=== PATIENT | female | born 1940 | race Caucasian/White ===

== ENCOUNTER → 2017-09-25 | Outpatient (CLI) | payer MEDICARE ==
--- NOTE | 2017-09-26 08:31 | ECHOF ---
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 This was a technically adequate study. The left ventricular size is normal. There is mild concentric left ventricular hypertrophy. Overa ll left ventricular systolic function is normal with, an EF between 55 - 60 %. The right ventricle is normal in size. The left atrium is mildly dilated. LA is midly dilated 29-33ml/m2. The right atrial size is normal. There is mild aortic valve sclerosis. There is mild aortic regurgitation. Mild mitral annular calcification present. Mild mitral regurgitation is present. Mild tricuspid regurgitation present. There is mild pulmonary hypertension. The right ventricular systolic pressure, as measured by Doppler, is 42.74mmHg. Trace/mild (physiologic) pulmonic regurgitation. The aortic root size is normal. There is no pericardial effusion. CONCLUSIONS -------- 1. The left ventricular size is normal. 2. There is mild concentric left ventricular hypertrophy. 3. Overall left ventricular systolic function is normal with, an EF between 55 - 60 %. 4. The left atrium is mildly dilated. 5. LA is midly dilated 29-33ml/m2. 6. There is mild aortic valve sclerosis. 7. There is mild aortic regurgitation. 8. Mild mitral annular calcification present. 9. Mild mitral regurgitation is present. 10. Mild tricuspid regurgitation present. 11. There is mild pulmonary hypertension. 12. The right ventricular systolic pressure, as measured by Doppler, is 42.74mmHg. 13. Trace/mild (physiologic) pulmonic regurgitation. 14. The aortic root size is normal. 15. There is no pericardial effusion. MARKETING DATABASE COORDINATOR: Beatriz Sifuentes RDCS
== END ==
LOC: RADECHMAIN 14:37
PROVIDERS: ATTEND Family Medicine
DX: I08.3 Combined rheumatic disorders of mitral, aortic and tricuspid valves (principal); I27.20 Pulmonary hypertension, unspecified
CPT/HCPCS: 93306

== ENCOUNTER → 2018-05-26 | Outpatient (CLI) | payer MEDICARE ==
--- NOTE | 2018-05-27 12:48 | ECHOF ---
Referral Reason:I48.0 Paroxysmal atrial fibrillation MEASUREMENTS -------- HEIGHT: 162.6 cm WEIGHT: 54.4 kg BP: 118/60 RVIDd: 3.5 cm (< 3.3) IVSd: 1.0 cm (0.6 - 1.1) LVIDd: 3.8 cm (3.9 - 5.3) LVPWd: 0.9 cm (0.6 - 1.1) IVSs: 1.4 cm LVIDs: 2.5 cm LVPWs: 1.5 cm LA Diam: 3.7 cm (2.7 - 3.8) LAESV Index (A-L): 29.70 ml/m Ao Diam: 2.9 cm (2.0 - 3.7) AV Cusp: 1.9 cm (1.5 - 2.6) MV EXCURSION: 15.618 mm (> 18.000) MV EF SLOPE: 53 mm/s (70 - 150) EPSS: 0.5 cm RAP: 5.00 mmHg RVSP: 29.01 mmHg FINDINGS -------- Atrial fibrillation. This was a technically good study. The left ventricular size is normal. Left ventricular wall thickness is normal. Overall left vent ricular systolic function is normal with, an EF between 55 - 60 %. The right ventricle is mildly enlarged. LA is midly dilated 29-33ml/m2. The right atrium is normal in size. There is mild aortic valve sclerosis. Mild mitral annular calcification present. Mild mitral regurgitation is present. Mild tricuspid regurgitation present. Right ventricular systolic pressure is normal at < 35 mmHg. Trace/mild (physiologic) pulmonic regurgitation. The aortic root size is normal. Normal inferior vena cava with normal inspiratory collapse consistent with estimated right atrial pre ssure of 5 mmHg. The inferior vena cava is mildly dilated. There is no pericardial effusion. CONCLUSIONS -------- 1. Atrial fibrillation. 2. This was a technically good study. 3. The left ventricular size is normal. 4. Left ventricular wall thickness is normal. 5. Overall left ventricular systolic function is normal with, an EF between 55 - 60 %. 6. The right ventricle is mildly enlarged. 7. LA is midly dilated 29-33ml/m2. 8. The right atrium is normal in size. 9. There is mild aortic valve sclerosis. 10. Mild mitral annular calcification present. 11. Mild mitral regurgitation is present. 12. Mild tricuspid regurgitation present. 13. Right ventricular systolic pressure is normal at < 35 mmHg. 14. Trace/mild (physiologic) pulmonic regurgitation. 15. The aortic root size is normal. 16. Normal inferior vena cava with normal inspiratory collapse consistent with estimated right atrial pressure of 5 mmHg. 17. The inferior vena cava is mildly dilated. 18. There is no pericardial effusion. PHYSICAL GEOGRAPHER: Paola Pradhan RDCS
== END | disposition home or self-care (01) ==
LOC: RADECHMAIN 12:50
PROVIDERS: ATTEND Family Medicine
DX: I08.8 Other rheumatic multiple valve diseases (principal); I48.91 Unspecified atrial fibrillation
CPT/HCPCS: 93306

== ENCOUNTER → 2020-01-20 | Outpatient (CLI) | payer MEDICARE ==
--- NOTE | 2020-01-20 17:47 | ECHOF ---
Referral Reason:R06.09 Dyspnea MEASUREMENTS -------- HEIGHT: 162.6 cm WEIGHT: 50.8 kg BP: IVSd: 1.2 cm (0.6 - 1.1) LVIDd: 3.0 cm (3.9 - 5.3) LVPWd: 1.3 cm (0.6 - 1.1) IVSs: 1.7 cm LVIDs: 1.2 cm LVPWs: 1.6 cm LAESV Index (A-L): 26.89 ml/m Ao Diam: 2.5 cm (2.0 - 3.7) AV Cusp: 1.5 cm (1.5 - 2.6) LA Diam: 3.6 cm (2.7 - 3.8) MV EXCURSION: 14.230 mm (> 18.000) MV EF SLOPE: 71 mm/s (70 - 150) EPSS: 0.4 cm RAP: 5.00 mmHg RVSP: 41.05 mmHg FINDINGS -------- Undetermined rhythm. This was a technically good study. The left ventricular size is normal. There is mild concentric left ventricular hypertrophy. Overa ll left ventricular systolic function is normal with, an EF between 55 - 60 %. The right ventricle is normal in size. The left atrial size is normal. RA appears enlarged. The aortic valve is trileaflet and appears structurally normal. The mitral valve is normal. The mitral valve leaflets are mildly thickened. Mild mitral regurgita tion is present. Severe tricuspid regurgitation present. There is mild pulmonary hypertension. Trace/mild (physiologic) pulmonic regurgitation. The aortic root size is normal. Normal inferior vena cava with normal inspiratory collapse consistent with estimated right atrial pre ssure of 5 mmHg. There is no pericardial effusion. CONCLUSIONS -------- 1. The left ventricular size is normal. 2. There is mild concentric left ventricular hypertrophy. 3. Overall left ventricular systolic function is normal with, an EF between 55 - 60 %. 4. RA appears enlarged. 5. The mitral valve leaflets are mildly thickened. 6. Mild mitral regurgitation is present. 7. Severe tricuspid regurgitation present. 8. There is mild pulmonary hypertension. 9. Trace/mild (physiologic) pulmonic regurgitation. SOILED LINEN DISTRIBUTOR: Ambreen Wright RDCS
== END | disposition home or self-care (01) ==
LOC: RADECHMAIN 14:21
PROVIDERS: ATTEND Family Medicine
DX: I08.1 Rheumatic disorders of both mitral and tricuspid valves (principal); I27.20 Pulmonary hypertension, unspecified
CPT/HCPCS: 93306

== ENCOUNTER → 2020-03-29 | Outpatient (CLI) | payer MEDICARE ==
--- NOTE | 2020-03-29 16:01 | US ---
EXAMINATION TYPE: US thyroid st tissue head/neck DATE OF EXAM: 03/29/2020 COMPARISON: NONE CLINICAL HISTORY: R22.1 Localized swelling/lump of neck. No mass or abnormality seen at patients area of lump in submandibular area. Submandibular gland is un remarkable. No evidence of skin thickening or subcutaneous edema. No focal fluid collection. Bilateral neck scanned, no evidence of lymphadenopathy. IMPRESSION: No lymphadenopathy or focal abnormality of the submandibular region.
== END | disposition home or self-care (01) ==
LOC: RADUSWWP 14:03
PROVIDERS: ATTEND Family Medicine
DX: R22.1 Localized swelling, mass and lump, neck (principal)
CPT/HCPCS: 76536

== ENCOUNTER 2024-05-25 04:40 | Emergency (ER) | payer MEDICARE ==
[2024-05-25] MEDS: SODIUM CHLORIDE 0.9% 2,000 ML IV ONE (04:45)
[2024-05-25 04:50] LABS: Glucose,Whole Blood 120 mg/dL (70-110)
[2024-05-25] MEDS: NOREPINEPHRINE 4 MG in SODIUM CHLORIDE 0.9% 250 ML IV ONE (04:50)
--- NOTE | 2024-05-25 05:00 | ED ---
General Adult HPI - General Chief complaint: Cardiac Arrest/CPR Stated complaint: Cardiac arrest Time Seen by Provider: 05/25/24 04:55 Source: patient Mode of arrival: EMS Limitations: no limitations - History of Present Illness Initial comments: Patient 83-year-old female presenting status post precardiac arrest. Patient was at her assisted living facility tonight when she complained of shortness of breath and collapsed. EMS was called and arrived 2 minutes later and found patient to be in PEA. CPR was initiated and continued for 35 minutes with patient continuously in PEA. We were initially called for time of which was called due to prolonged downtime however shortly after this patient was found to have a pulse was brought to the ER. And route to the hospital pulses were lost again and she received another 5 minutes of CPR, in PEA on arrival. After another 2-minute CPR, ROSC was achieved. Patient has no known medical history. - Related Data Allergies Allergy/AdvReac Type Severity Reaction Status Date / Time Unable to Assess Allergy Verified 05/25/24 04:56 Review of Systems ROS Statement: Those systems with pertinent positive or pertinent negative responses have been documented in the HPI. ROS Other: All systems not noted in ROS Statement are negative. Limitations: ROS unobtainable due to patients medical condition Past Medical History Past Medical History: Unable to Obtain History of Any Multi-Drug Resistant Organisms: Unobtainable Past Surgical History: Unable to Obtain Past Psychological History: Unable to Obtain Smoking Status: Unknown if ever smoked Past Alcohol Use History: Unable to Obtain Past Drug Use History: Unable to Obtain General Exam - General Exam Comments Initial Comments: PE: CONSTITUTIONAL: Ill-appearing, unresponsive, Igel in place, pale SKIN: Cool, pale dry, no jaundice, hives or petechiae EYES: Pupils are equally round, 4 mm, nonreactive,clear conjunctiva, non-icteric sclera, no extraocular movements HENT: Normocephalic, atraumatic, moist mucus membranes, oropharynx clear without exudates, I gel in place NECK: , Normal appearance PULMONARY: Rhonchi bilaterally with assisted ventilation, no wheezes or rails, no spontaneous respirations CARDIOVASCULAR: Regular rate, rhythm, faint and distant heart sounds, normal S1- S2, weak 1+ radial pulses and femoral pulses bilaterally, no lower extremity edema GASTROINTESTINAL: Soft, active bowel sounds throughout,non-distended, no palpable masses, no rebound or guarding. No hepatosplenomegaly MUSCULOSKELETAL: Extremities have no gross deformity, no edema, redness, or swelling. No calf swelling NEUROLOGIC:_a/o x 0, GCS 3, unable to perform neurologic exam due to patient's unresponsive status Limitations: no limitations Course Vital Signs 05/25/24 05/25/24 05/25/24 04:43 04:50 04:55 Temperature Pulse Rate 70 71 45 L Respiratory Rate Blood Pressure 155/140 122/97 104/39 O2 Sat by Pulse Oximetry Fraction of Inspired Oxygen (FIO2) 05/25/24 05/25/24 05/25/24 05:00 05:05 05:06 Temperature 96.4 F L Pulse Rate 55 L 58 L Respiratory 25 H Rate Blood Pressure 58/21 57/28 O2 Sat by Pulse Oximetry Fraction of 100 100 Inspired Oxygen (FIO2) 05/25/24 05/25/24 05/25/24 05:10 05:15 05:18 Temperature 96.3 F L Pulse Rate 61 61 60 Respiratory 25 H 24 20 Rate Blood Pressure 67/31 59/22 59/22 O2 Sat by Pulse 100 99 Oximetry Fraction of Inspired Oxygen (FIO2) 05/25/24 05/25/24 05:20 05:30 Temperature 95.5 F L Pulse Rate 57 L 60 Respiratory 22 21 Rate Blood Pressure 59/22 108/36 O2 Sat by Pulse 100 97 Oximetry Fraction of Inspired Oxygen (FIO2) EKG Findings - EKG Comments: EKG Findings:: Atrial fibrillation with abbarent conduction, rate 73 bpm, QRS duration 94 ms, QT/QTc 334/460 ms, borderline right axis deviation, ST depressions in V1, V2 V3 V4 V5 and V6 as well as lead aVL, [address] elevation in lead III, [address] elevation in aVF, [address] elevation in aVR, STEMI Procedures - Intubation Laryngoscope: Fran Size: 3 ET Tube Size: 7 ET Tube Uncuffed: No Tube Secured Depth (cm): 23 Tube Secured Location: lips Tube Placement Confirmation: visualized tube passing through cords, equal breath sounds bilaterally, no breath sounds over epigastrium, confirmation by capnometry Patient Tolerated Procedure: well, no complications Medical Decision Making - Medical Decision Making Was pt. sent in by a medical professional or institution (, PA, CONTRACT SERVICEMAN, urgent care, hospital, or jail...) When possible be specific @ -No Did you speak to anyone other than the patient for history (EMS, parent, family, police, friend...)? What history was obtained from this source @ -Spoke with EMS personnel provided HPI, stating patient complained of shortness of breath at her assisted living facility and collapsed, received 35 minutes CPR in PEA when ROSC was achieved, pulses were lost and route patient received another 10 minutes CPR, CPR ongoing on arrival blood glucose 120 for EMS Did you review nursing and triage notes (agree or disagree)? Why? @ -I reviewed and agree with nursing and triage notes Were old charts reviewed (outside hosp., previous admission, EMS record, old EKG, old radiological studies, urgent care reports/EKG's, jail records)? Report findings @Medical records reviewed, it appears patient has not been to this facility recently Differential Diagnosis (chest pain, altered mental status, abdominal pain women, abdominal pain men, vaginal bleeding, weakness, fever, dyspnea, syncope, headache, dizziness, GI bleed, back pain, seizure, CVA, palpatations, mental health, musculoskeletal)? @Differential diagnosis remains broad however top considerations include cardiac arrest secondary to respiratory arrest/hypoxemia, STEMI, PE, cardiac tamponade, anemia/hemorrhage, hypo or hyperkalemia, infection this is not an all-inclusive list EKG interpreted by me (3pts min.). @ -As above X-rays interpreted by me (1pt min.). @ET tube approximately 2 cm above the rayne, no pneumothorax, severe scoliosis present CT interpreted by me (1pt min.). @ -None done U/S interpreted by me (1pt. min.). @ -None done What testing was considered but not performed or refused? (CT, X-rays, U/S, labs)? Why? @CT PE study was ordered to assess for massive PE or dissection however this ultimately was not performed as patient prior to obtaining these, patient not stable enough to go to CT prior to that What meds were considered but not given or refused? Why? @Out of concern for ST elevation [place], heparin was considered however shortly after consultation with cardiology patient Did you discuss the management of the patient with other professionals (professionals i.e. , PA, CONTRACT SERVICEMAN, lab, RT, psych nurse, social insurance administrator, fbi special agent, teacher, audit officer, rifle case repairer)? Give summary @This case was discussed with Dr. Taylor, cardiology out of concern for STEMI however after reviewing patient's case and unlikelihood of recovery, Dr. Taylor requested cancellation of STEMI activation and cancellation of Top And Seat Cover Fitter activation Was smoking cessation discussed for >3mins.? @ -No Was critical care preformed (if so, how long)? @Yes, 60 minutes Were there social determinants of health that impacted care today? How? (Homelessness, low income, unemployed, alcoholism, drug addiction, transportation, low edu. Level, literacy, decrease access to med. care, usp, rehab)? @ -No Was there de-escalation of care discussed even if they declined (Discuss DNR or withdrawal of care, Hospice)? @Family was attempted to be contacted via phone numbers on file however patient's , next phone number on file was disconnected and no contact information for next of kin was provided by patient's assisted living facility What co-morbidities impacted this encounter? (DM, HTN, Smoking, COPD, CAD, Cancer, CVA, ARF, Chemo, Hep., AIDS, mental health diagnosis, sleep apnea, morbid obesity)? @ -Unknown Was patient admitted / discharged? Hospital course, mention meds given and route, prescriptions, significant lab abnormalities, going to OR and other pertinent info. @ -- Patient is an 83-year-old female with unknown past medical history presenting status post cardiac arrest. Patient was at her assisted living facility this evening walking with an aide when she complained of shortness of breath and c ollapsed. Paramedics were called and arrived 2 minutes later and initiated CPR and patient was found to be pulseless. Was noted to be in PEA despite 5 rounds of CPR and every 35 minutes of CPR without ROSC the emergency room and was initially contacted for time of . Time of was called however paramedics then palpated a pulse so transferred patient to the emergency department. En route to the ER pulses were lost again and patient received another 10 minutes of CPR before arriving in the emergency department with CPR ongoing. Patient seen and assessed immediately upon arrival. Once transferred to [facility], pulse was checked and absent. 2 minutes of CPR continued wth 1 epi, ROSC achieved. Patient appeared to be in sinus rhythm. Patient intubated without difficulty. No gag reflex on intubation. Pupils 4 mm bilaterally and nonreactive, no spontaneous respirations, breath sounds bilaterally with assisted respirations, instability of the chest wall palpated, presumably from rib fracture secondary to compressions, abdomen was soft and nondistended, distant heart sounds noted once pulses were regained. Warm IV fluids were hung in addition to norepinephrine. Once EKG was obtained that did appear to show a pattern consistent with STEMI so the Top And Seat Cover Fitter was activated however Dr. Taylor, cardiology called back immediately and after discussing patient's prolonged downtime and unlikelihood of recovery the Top And Seat Cover Fitter was deactivated. Multiple attempts were made by nursing staff to call patient's family however no family was able to contacted. No paperwork was provided by patient's facility regarding DNR status, next of kin or medical history. Patient again lost pul ses, CPR was attempted for 1 round however the decision was made to terminate resuscitation efforts due to patient's prolonged downtime and unlikelihood of recovery. Time of called at 5:38 AM. Undiagnosed new problem with uncertain prognosis? @ -No Drug Therapy requiring intensive monitoring for toxicity (Heparin, Nitro, Insulin, Cardizem)? @ -No Were any procedures done? @ -No Diagnosis/symptom? @Cardiac arrest, ST elevation [place] Acute, or Chronic, or Acute on Chronic? Acute Uncomplicated (without systemic symptoms) or Complicated (systemic symptoms)? Complicated Side effects of treatment? @ -No Exacerbation, Progression, or Severe Exacerbation? @ -No Poses a threat to life or bodily function? How? (Chest pain, [place], [place], pneumonia, PE, COPD, DKA, ARF, appy, cholecystitis, CVA, Diverticulitis, Homicidal, Suicidal, threat to staff... and all critical care pts) Yes, this ultimately resulted in patient's - Lab Data Result diagrams: 05/25/24 04:45 05/25/24 04:45 Lab Results 05/25/24 05/25/24 05/25/24 Range/Units 04:45 04:45 04:45 WBC 4.7 (3.8-10.6) k/uL RBC 3.13 L (3.80-5.40) m/uL Hgb 7.6 L (11.4-16.0) gm/dL Hct 31.3 L (34.0-46.0) % MCV 100.0 (80.0-100.0) fL MCH 24.3 L (25.0-35.0) pg MCHC 24.3 L (31.0-37.0) g/dL RDW 16.1 H (11.5-15.5) % Plt Count 109 L (150-450) k/uL MPV 7.5 Neutrophils % 70 % Lymphocytes % 23 % Monocytes % 5 % Eosinophils % 0 % Basophils % 1 % Neutrophils # 3.3 (1.3-7.7) k/uL Lymphocytes # 1.1 (1.0-4.8) k/uL Monocytes # 0.2 (0-1.0) k/uL Eosinophils # 0.0 (0-0.7) k/uL Basophils # 0.0 (0-0.2) k/uL Hypochromasia Marked Anisocytosis Slight Macrocytosis Slight PT 26.4 H (10.0-12.5) sec INR 2.6 H (<1.2) APTT 62.8 H (22.0-30.0) sec Sodium 142 (137-145) mmol/L Potassium 4.9 (3.5-5.1) mmol/L Chloride 108 H (98-107) mmol/L Carbon Dioxide 10 L (22-30) mmol/L Anion Gap 24 mmol/L BUN 33 H (7-17) mg/dL Creatinine 1.35 H (0.52-1.04) mg/dL Est GFR (CKD-EPI)AfAm 42 (>60 ml/min/1.73 sqM) Est GFR (CKD-EPI)NonAf 36 (>60 ml/min/1.73 sqM) Glucose 110 H (74-99) mg/dL POC Glucose (mg/dL) (70-110) mg/dL POC Glu Od Grinder Operator ID Lactic Ac Sepsis Rflx Plasma Lactic Acid Monroe (0.7-2.0) mmol/L Calcium 8.1 L (8.4-10.2) mg/dL Total Bilirubin 0.5 (0.2-1.3) mg/dL AST 44 H (14-36) U/L ALT 36 H (4-34) U/L Alkaline Phosphatase 97 (38-126) U/L Troponin I (0.000-0.034) ng/mL NT-Pro-B Natriuret Pep 3340 pg/mL Total Protein 4.4 L (6.3-8.2) g/dL Albumin 2.5 L (3.5-5.0) g/dL 05/25/24 05/25/24 05/25/24 Range/Units 04:45 04:45 04:48 WBC (3.8-10.6) k/uL RBC (3.80-5.40) m/uL Hgb (11.4-16.0) gm/dL Hct (34.0-46.0) % MCV (80.0-100.0) fL MCH (25.0-35.0) pg MCHC (31.0-37.0) g/dL RDW (11.5-15.5) % Plt Count (150-450) k/uL MPV Neutrophils % % Lymphocytes % % Monocytes % % Eosinophils % % Basophils % % Neutrophils # (1.3-7.7) k/uL Lymphocytes # (1.0-4.8) k/uL Monocytes # (0-1.0) k/uL Eosinophils # (0-0.7) k/uL Basophils # (0-0.2) k/uL Hypochromasia Anisocytosis Macrocytosis PT (10.0-12.5) sec INR (<1.2) APTT (22.0-30.0) sec Sodium (137-145) mmol/L Potassium (3.5-5.1) mmol/L Chloride (98-107) mmol/L Carbon Dioxide (22-30) mmol/L Anion Gap mmol/L BUN (7-17) mg/dL Creatinine (0.52-1.04) mg/dL Est GFR (CKD-EPI)AfAm (>60 ml/min/1.73 sqM) Est GFR (CKD-EPI)NonAf (>60 ml/min/1.73 sqM) Glucose (74-99) mg/dL POC Glucose (mg/dL) 120 H (70-110) mg/dL POC Glu Od Grinder Operator ID Burgess Loaiza Lactic Ac Sepsis Rflx Plasma Lactic Acid Monroe 22.1 H* (0.7-2.0) mmol/L Calcium (8.4-10.2) mg/dL Total Bilirubin (0.2-1.3) mg/dL AST (14-36) U/L ALT (4-34) U/L Alkaline Phosphatase (38-126) U/L Troponin I 0.053 H* (0.000-0.034) ng/mL NT-Pro-B Natriuret Pep pg/mL Total Protein (6.3-8.2) g/dL Albumin (3.5-5.0) g/dL 05/25/24 Range/Units 05:36 WBC (3.8-10.6) k/uL RBC (3.80-5.40) m/uL Hgb (11.4-16.0) gm/dL Hct (34.0-46.0) % MCV (80.0-100.0) fL MCH (25.0-35.0) pg MCHC (31.0-37.0) g/dL RDW (11.5-15.5) % Plt Count (150-450) k/uL MPV Neutrophils % % Lymphocytes % % Monocytes % % Eosinophils % % Basophils % % Neutrophils # (1.3-7.7) k/uL Lymphocytes # (1.0-4.8) k/uL Monocytes # (0-1.0) k/uL Eosinophils # (0-0.7) k/uL Basophils # (0-0.2) k/uL Hypochromasia Anisocytosis Macrocytosis PT (10.0-12.5) sec INR (<1.2) APTT (22.0-30.0) sec Sodium (137-145) mmol/L Potassium (3.5-5.1) mmol/L Chloride (98-107) mmol/L Carbon Dioxide (22-30) mmol/L Anion Gap mmol/L BUN (7-17) mg/dL Creatinine (0.52-1.04) mg/dL Est GFR (CKD-EPI)AfAm (>60 ml/min/1.73 sqM) Est GFR (CKD-EPI)NonAf (>60 ml/min/1.73 sqM) Glucose (74-99) mg/dL POC Glucose (mg/dL) (70-110) mg/dL POC Glu Od Grinder Operator ID Lactic Ac Sepsis Rflx Y Plasma Lactic Acid Monroe (0.7-2.0) mmol/L Calcium (8.4-10.2) mg/dL Total Bilirubin (0.2-1.3) mg/dL AST (14-36) U/L ALT (4-34) U/L Alkaline Phosphatase (38-126) U/L Troponin I (0.000-0.034) ng/mL NT-Pro-B Natriuret Pep pg/mL Total Protein (6.3-8.2) g/dL Albumin (3.5-5.0) g/dL Disposition Clinical Impression: Acute myocardial infarction, Cardiac arrest Disposition: Referrals: Cyrus Morrison MD [Primary Care Provider] - 1-2 days Preliminary Cause of : STEMI
--- NOTE | 2024-05-25 05:07 | XR ---
EXAMINATION TYPE: XR chest 1V portable DATE OF EXAM: 05/25/2024 COMPARISON: Chest CT March 23, 2024 CLINICAL INDICATION: Female, 83 years old with history of chest pain; TECHNIQUE: Single frontal view of the chest is obtained. FINDINGS: There is an endotracheal tube terminating at the aortic knob level approximately 1 to 2 cm above the rayne. There is chronic parenchymal change without suspicious focal air space opacity, pl eural effusion, or pneumothorax seen. Cardiomegaly is present with atelectatic thoracic aorta. Levoco nvex scoliosis is again seen. IMPRESSION: 1. New endotracheal tube is low in position, advise pulling back 2 to 3 cm to be in more ideal positi on. 2. Chronic changes and cardiomegaly without acute pulmonary process. [facility], , 05/25/2024 5:04 AM
[2024-05-25 05:15] LABS: Anisocytosis Slight; Basophils % (A) 1 %; Eosinophils % (A) 0 %; HCT 31.3 % (34.0-46.0); HGB 7.6 gm/dL (11.4-16.0); Hypochromasia Marked; Lymphocytes # (A) 1.1 k/uL (1.0-4.8); Lymphocytes % (A) 23 %; MCH 24.3 pg (25.0-35.0); MCHC 24.3 g/dL (31.0-37.0); Macrocytosis Slight; Mean Platelet Volume 7.5; Monocytes # (A) 0.2 k/uL (0-1.0); Monocytes % (A) 5 %; Neutrophils # (A) 3.3 k/uL (1.3-7.7); Neutrophils % (A) 70 %; Platelet Count 109 k/uL (150-450); RBC 3.13 m/uL (3.80-5.40); RDW 16.1 % (11.5-15.5); WBC 4.7 k/uL (3.8-10.6)
[2024-05-25 05:22] LABS: AST 44 U/L (14-36); African American GFR (CKD) 42 (>60 ml/min/1.73 sqM); Albumin 2.5 g/dL (3.5-5.0); Alkaline Phosphatase 97 U/L (38-126); Anion Gap 24 mmol/L; Blood Urea Nitrogen 33 mg/dL (7-17); Calcium 8.1 mg/dL (8.4-10.2); Carbon Dioxide 10 mmol/L (22-30); Chloride 108 mmol/L (98-107); Glucose 110 mg/dL (74-99); Non-African American GFR(CKD) 36 (>60 ml/min/1.73 sqM); Potassium 4.9 mmol/L (3.5-5.1); Sodium 142 mmol/L (137-145); Total Bilirubin 0.5 mg/dL (0.2-1.3); Total Protein 4.4 g/dL (6.3-8.2)
[2024-05-25 05:25] LABS: INR 2.6 (<1.2); Prothrombin Time 26.4 sec (10.0-12.5)
[2024-05-25 05:27] LABS: Partial Thromboplastin Time 62.8 sec (22.0-30.0)
[2024-05-25 05:30] LABS: NT-Pro-B-Type Natriuretic Pept 3340 pg/mL
[2024-05-25 05:34] LABS: ALT 36 U/L (4-34)
[2024-05-25 05:42] VITALS: BP 108/36; PULSE 60; RESP 21; TEMP 95.5
[2024-05-25] MEDS: ASPIRIN 300 MG SUPP RECTAL STA (05:44)
== END 2024-05-25 06:50 | disposition expired ==
LOC: EC 04:40
DX: I21.3 ST elevation (STEMI) myocardial infarction of unspecified site (principal); I46.9 Cardiac arrest, cause unspecified
CPT/HCPCS: 31500; 36415; 71045; 80053; 83605; 83880; 84484; 85025; 85610; 85730; 93005; 94002; 96365; 99291